=== PATIENT | female | born 1930 | race Caucasian/White ===

== ENCOUNTER 2017-03-14 15:10 | Observation (INO) ==
[2017-03-14] MEDS ORDERED: Aspirin 325 MG TABLET PO ONE (15:30)
--- NOTE | 2017-03-14 15:34 | Emergency Department Note ---
Disposition Clinical Impression: Atrial fibrillation with RVR Disposition: Admitted As Inpatient Condition: Good Time of Disposition: 17:26 Arrhythmia/Palpitations HPI - General Chief Complaint: ED Arrhythmia/Palpitations Stated Complaint: Tachy Time Seen by Provider: 03/14/17 15:32 Source: patient Mode of arrival: ambulatory Limitations: no limitations Nursing Notes Reviewed: Yes Vital Signs Reviewed: Yes - History of Present Illness HPI Narrative: This is an 86-year-old female who came in after being seen at her family doctor and told her heart rate was high. Patient is completely asymptomatic she denies any pain complaints. Patient thinks she might of had a history of an abnormal heart rhythm in the past but she is not sure. Patient denies any chest pain, shortness of breath, lightheadedness, or other symptoms. Pt Subjective Complaint: rapid heart beat - Related Data Home Medications Medication Instructions Recorded Confirmed Amlodipine Besylate 10 mg PO DAILY 03/14/17 03/14/17 Aspirin Enteric Coated [Aspirin EC] 81 mg PO DAILY 03/14/17 03/14/17 Calcium Carbonate [Calcium] 600 mg PO BID 03/14/17 03/14/17 Cholecalciferol (D-3) [Vitamin D] 1,000 unit PO DAILY 03/14/17 03/14/17 Docusate [Colace] 100 mg PO BID PRN 03/14/17 03/14/17 LORazepam [Ativan] 1 mg PO BID 03/14/17 03/14/17 Losartan/Hydrochlorothiazide 1 each PO DAILY 03/14/17 03/14/17 [Hyzaar 100-25 Tablet] Lovastatin 40 mg PO HS 03/14/17 03/14/17 Multivitamin [One Daily Essential] 1 each PO DAILY 03/14/17 03/14/17 [place]-3/Dha/Epa/Fish Oil [Fish Oil 1 each PO BID 03/14/17 03/14/17 500 mg Softgel] Polyethylene Glycol 3350 [MiraLAX] 17 gm PO DAILY 03/14/17 03/14/17 Potassium Chloride [Klor-Con 10] 10 meq PO DAILY 03/14/17 03/14/17 Sertraline [Zoloft] 50 mg PO DAILY 03/14/17 03/14/17 Previous Rx's Medication Instructions Recorded traMADol [Ultram] 50 mg PO Q6HR PRN #20 tablet 02/17/16 Allergies Allergy/AdvReac Type Severity Reaction Status Date / Time Penicillins Allergy Anaphylaxis Verified 02/17/16 09:31 All systems ED: reviewed and negative except as stated. Constitutional: Denies: fever, chills, weakness, weight change Eyes: Denies: eye pain, eye discharge, vision change ENT ED: Denies: ear pain, throat pain, dental pain, hearing loss, epistaxis, congestion, dysphagia Cardiovascular: Denies: chest pain, palpitations, dyspnea on exertion, edema, syncope Respiratory: Denies: cough, dyspnea, wheezes, hemoptysis, stridor Gastrointestinal: Denies: abdominal pain, nausea, vomiting, diarrhea, constipation, hematemesis, melena, hematochezia Genitourinary: Denies: dysuria, frequency, hematuria, discharge Musculoskeletal: Denies: back pain, neck pain, arthralgia, myalgia Integumentary: Denies: rash, abrasion, lesions Neurological: Denies: headache, weakness, numbness, paresthesias, confusion, abnormal gait, vertigo Psychiatric: Denies: anxiety, depression, suicidal thoughts, homicidal thoughts , auditory hallucinations, visual hallucinations Endocrine: Denies: fatigue Hematological/Lymphatic: Denies: easy bleeding, easy bruising Allergic/Immunologic: Denies: facial swelling, urticaria Past Medical History - Past Medical History Attestation: Yes The following information was validated with the patient. Source: patient Medical history: Reports: atrial fibrillation, hyperlipidemia, hypertension, other Psychiatric history: Reports: no psych history - Social History Smoking Status: Never smoker Smokeless Tobacco Status: No Alcohol use: Reports: none Drug use: Reports: none Physical Exam - General Limitations: no limitations General appearance: alert, in no apparent distress - Head Head exam: atraumatic, normocephalic, normal inspection - Eye Eye exam: Present: normal appearance, PERRL, EOMI - ENT ENT exam: normal exam, normal oropharynx, mucous membranes moist - Expanded ENT Exam External ear exam: Present: normal external inspection Mouth exam: Present: normal external inspection Teeth exam: Present: normal inspection Throat exam: Present: normal inspection - Neck Neck exam: Present: normal inspection, full ROM, trachea midline - Chest Chest inspection: Present: normal inspection, symmetric chest wall rise - Respiratory Respiratory exam: Present: normal lung sounds bilaterally - Cardiovascular Cardiovascular exam: Present: tachycardia, irregular rhythm, normal heart sounds - Abdominal Exam Abdominal exam: Present: soft, Non-Tender. Absent: tenderness, distention, guarding, rebound, rigidity - Extremities Exam Extremities exam: Present: normal inspection, full ROM, pedal edema. Absent: tenderness - Expanded Upper Extremity Exam Shoulder exam: Present: normal inspection, full ROM Arm exam: Present: normal inspection, full ROM Elbow exam: Present: normal inspection, full ROM Forearm/Wrist exam: Present: normal inspection, full ROM Hand exam: Present: normal inspection, full ROM Vascular exam: Normal: capillary refill, radial pulse - Expanded Lower Extremity Exam Hip/Pelvis exam: Present: normal inspection, full ROM Upper leg exam: Present: normal inspection, full ROM Knee exam: Present: normal inspection, full ROM Lower leg exam: Present: full ROM, swelling Ankle exam: Present: full ROM, swelling Foot/toe exam: Present: normal inspection, full ROM Neurovascular/Tendon exam: Absent: motor deficit, sensory deficit, tendon deficit - Back Exam Back exam: Present: normal inspection, full ROM. Absent: tenderness - Neurological Exam Neurological exam: Present: alert, oriented X3 - Expanded Neurological Exam Patient oriented to: Present: person, place, time Coma Scale Eye Opening: Spontaneous Coma Scale Motor Response: Obeys Commands Coma Scale Verbal Response: Oriented Coma Scale Total: 15 - Psychiatric Psychiatric exam: Present: normal affect, normal mood - Skin Skin exam: Present: warm, dry, intact, normal color Course - Consultations Consultation #1: I spoke with Dr. Sean clemente to admit. 17:15. Consultation #2: I spoke with Dr. Adi clemente to consult. 18:03 Vital Signs Temperature 98.1 F 03/14/17 15:13 Pulse Rate 152 03/14/17 15:13 Respiratory Rate 18 03/14/17 15:13 Blood Pressure 115/88 03/14/17 15:13 O2 Sat by Pulse Oximetry 95 03/14/17 15:13 Temperature 98.1 F 03/14/17 15:13 Pulse Rate 98 03/14/17 17:06 Respiratory Rate 16 03/14/17 17:55 Blood Pressure 117/73 03/14/17 17:55 O2 Sat by Pulse Oximetry 92 03/14/17 17:06 Oxygen Delivery Oxygen Delivery Room Air Arrhythmia/Palpitations - Medical Records Medical records reviewed: Yes I reviewed the patient's medical records. - Lab Data Lab results reviewed: Yes I reviewed the patient's lab results. Result diagrams: 03/14/17 15:51 03/14/17 15:51 Lab Results 03/14/17 03/14/17 03/14/17 Range/Units 15:51 15:51 15:51 WBC 6.2 (4.3-11.1) K/mcL RBC 4.63 (3.82-4.97) M/mcL Hgb 14.4 (11.5-15.4) g/dL Hct 44.3 (35.3-44.9) % MCV 95.7 (83.0-100.0) fL MCH 31.1 (28.0-33.3) pg MCHC 32.5 (31.6-35.5) g/dL RDW 14.3 (11.5-14.5) % Plt Count 249 (140-400) K/mcL MPV 11.1 (9.4-12.4) fL Immature Gran % 0.5 (0-4) % Seg Neutrophils % 67.5 % Lymphocytes % 14.8 % Monocytes % 12.0 % Eosinophils % 4.2 % Basophils % 1.0 % Neutrophils # 4.2 (1.6-8.9) K/mcL Lymphocytes # 0.9 (0.6-4.6) K/mcL Monocytes # 0.7 (0.0-1.3) K/mcL Eosinophils # 0.3 (0.0-0.6) K/mcL Basophils # 0.1 (0.0-0.2) K/mcL PT 12.2 H (9.4-12.1) Seconds INR 1.1 APTT 27.9 (26.0-36.0) Seconds Sodium (136-145) mEq/L Potassium (3.5-4.5) mEq/L Chloride (98-109) mEq/L Carbon Dioxide (19-29) mEq/L BUN (7-20) mg/dL Creatinine (0.57-1.11) mg/dL Est GFR ( Amer) (> 60) Est GFR (Non-Af Amer) (> 60) BUN/Creatinine Ratio (6-26) Glucose (70-99) mg/dL Calculated Osmolality (280-300) Calcium (8.6-10.8) mg/dL Total Bilirubin (0.2-1.2) mg/dL AST (5-34) Units/L ALT (0-55) Units/L Alkaline Phosphatase (38-126) Units/L Troponin I 0.04 H* (0-0.03) ng/mL Serum Total Protein (6.0-8.3) g/dL Albumin (3.5-5.0) g/dL Globulin (2.4-3.5) g/dL Albumin/Globulin Ratio (1.1-2.2) TSH (0.350-4.840) mcIU/mL Urine Color (Yellow) Urine Clarity (Clear) Urine pH (5.0-8.0) pH Units Ur Specific [place] (1.010-1.025) Urine Protein (Neg-Trace) mg/dL Urine Glucose (UA) (Normal) mg/dL Urine Ketones (Negative) mg/dL Urine Blood (Negative) Urine Nitrite (Negative) Urine Bilirubin (Negative) Urine Urobilinogen (Normal) mg/dL Ur Leukocyte Esterase (Negative) 03/14/17 03/14/17 Range/Units 15:51 17:00 WBC (4.3-11.1) K/mcL RBC (3.82-4.97) M/mcL Hgb (11.5-15.4) g/dL Hct (35.3-44.9) % MCV (83.0-100.0) fL MCH (28.0-33.3) pg MCHC (31.6-35.5) g/dL RDW (11.5-14.5) % Plt Count (140-400) K/mcL MPV (9.4-12.4) fL Immature Gran % (0-4) % Seg Neutrophils % % Lymphocytes % % Monocytes % % Eosinophils % % Basophils % % Neutrophils # (1.6-8.9) K/mcL Lymphocytes # (0.6-4.6) K/mcL Monocytes # (0.0-1.3) K/mcL Eosinophils # (0.0-0.6) K/mcL Basophils # (0.0-0.2) K/mcL PT (9.4-12.1) Seconds INR APTT (26.0-36.0) Seconds Sodium 140 (136-145) mEq/L Potassium 3.6 (3.5-4.5) mEq/L Chloride 103 (98-109) mEq/L Carbon Dioxide 26 (19-29) mEq/L BUN 21 H (7-20) mg/dL Creatinine 1.04 (0.57-1.11) mg/dL Est GFR ( Amer) > 60 (> 60) Est GFR (Non-Af Amer) 50 L (> 60) BUN/Creatinine Ratio 20 (6-26) Glucose 86 (70-99) mg/dL Calculated Osmolality 292 (280-300) Calcium 10.2 (8.6-10.8) mg/dL Total Bilirubin 0.8 (0.2-1.2) mg/dL AST 34 (5-34) Units/L ALT 20 (0-55) Units/L Alkaline Phosphatase 87 (38-126) Units/L Troponin I (0-0.03) ng/mL Serum Total Protein 7.1 (6.0-8.3) g/dL Albumin 3.4 L (3.5-5.0) g/dL Globulin 3.7 H (2.4-3.5) g/dL Albumin/Globulin Ratio 0.9 L (1.1-2.2) TSH 1.138 (0.350-4.840) mcIU/mL Urine Color Yellow (Yellow) Urine Clarity Clear (Clear) Urine pH 7.5 (5.0-8.0) pH Units Ur Specific [place] 1.016 (1.010-1.025) Urine Protein 30 H (Neg-Trace) mg/dL Urine Glucose (UA) Normal (Normal) mg/dL Urine Ketones Negative (Negative) mg/dL Urine Blood Negative (Negative) Urine Nitrite Negative (Negative) Urine Bilirubin Negative (Negative) Urine Urobilinogen Normal (Normal) mg/dL Ur Leukocyte Esterase Negative (Negative) - Radiology Data Radiology results reviewed: Yes I reviewed the patient's radiology results. - EKG Data EKG attestation: Yes I reviewed and interpreted this EKG. Rate: tachycardia Rhythm: A.Fib, PVC's [place]/QRS: normal
[2017-03-14 16:07] LABS: Basophils # 0.1 K/mcL (0.0-0.2); Eosinophils # 0.3 K/mcL (0.0-0.6); Eosinophils % 4.2 %; Hematocrit 44.3 % (35.3-44.9); Hemoglobin 14.4 g/dL (11.5-15.4); Immature Granulocytes % 0.5 % (0-4); Lymphocytes # 0.9 K/mcL (0.6-4.6); Lymphocytes % 14.8 %; Mean Corpuscular HGB Conc 32.5 g/dL (31.6-35.5); Mean Corpuscular Hemoglobin 31.1 pg (28.0-33.3); Mean Corpuscular Volume 95.7 fL (83.0-100.0); Mean Platelet Volume 11.1 fL (9.4-12.4); Monocytes # 0.7 K/mcL (0.0-1.3); Neutrophils # 4.2 K/mcL (1.6-8.9); Platelet Count 249 K/mcL (140-400); Red Blood Count 4.63 M/mcL (3.82-4.97); Red Cell Distribution Width 14.3 % (11.5-14.5); Segmented Neutrophils % 67.5 %
[2017-03-14] MEDS ORDERED: *HR* Metoprolol 5 MG/5 ML VIAL IVP ONE ×2 (16:13→17:27)
[2017-03-14 16:15] LABS: INR 1.1; Prothrombin Time 12.2 Seconds (9.4-12.1)
[2017-03-14 16:17] LABS: Activated Partial Thrombo Time 27.9 Seconds (26.0-36.0)
[2017-03-14 16:19] LABS: Alanine Aminotransferase 20 Units/L (0-55); Albumin 3.4 g/dL (3.5-5.0); Albumin/Globulin Ratio 0.9 (1.1-2.2); Alkaline Phosphatase 87 Units/L (38-126); Aspartate Amino Transferase 34 Units/L (5-34); BUN/Creatinine Ratio 20 (6-26); Bilirubin,Total 0.8 mg/dL (0.2-1.2); Blood Urea Nitrogen 21 mg/dL (7-20); Calcium 10.2 mg/dL (8.6-10.8); Carbon Dioxide 26 mEq/L (19-29); Chloride 103 mEq/L (98-109); Globulin 3.7 g/dL (2.4-3.5); Glucose 86 mg/dL (70-99); Osmolality,Calculated 292 (280-300); Potassium 3.6 mEq/L (3.5-4.5); Sodium 140 mEq/L (136-145); Total Protein 7.1 g/dL (6.0-8.3); eGFR For African Americans > 60 (> 60); eGFR For Non-African Americans 50 (> 60)
[2017-03-14 16:41] LABS: Thyroid Stimulating Hormone 1.138 mcIU/mL (0.350-4.840)
[2017-03-14 17:14] LABS: Bilirubin,Urine Negative (Negative); Blood,Urine Negative (Negative); Clarity,Urine Clear (Clear); Color,Urine Yellow (Yellow); Glucose,Urine (UA) Normal (Normal); Ketones,Urine Negative (Negative); Leukocyte Esterase,Urine Negative (Negative); Nitrite,Urine Negative (Negative); PH,Urine 7.5 pH Units (5.0-8.0); Protein,Urine 30 mg/dL (Neg-Trace); Specific Gravity,Urine 1.016 (1.010-1.025); Urobilinogen,Urine Normal (Normal)
[2017-03-14 17:16] LABS: Bacteria,Urine None Seen per hpf (None-Few); Hyaline Casts,Urine None Seen per lpf (None-Few); RBC,Urine 0-3 per hpf (0-3); Squamous Epithelial Cell,Urine Moderate per lpf (None-Few)
[2017-03-14] MEDS ORDERED: *HR* Heparin 5,000 UNIT/ML VIAL IVP PRN ×2 (20:43)
[2017-03-14] MEDS ORDERED: *HR* Morphine 2 MG/ML SYRINGE IVP PRN (20:43)
[2017-03-14] MEDS ORDERED: Acetaminophen 325 MG TABLET PO PRN (20:43)
[2017-03-14] MEDS ORDERED: Naloxone 0.4 MG/ML INJ IVP PRN (20:43)
[2017-03-14] MEDS ORDERED: *HR* Heparin 5,000 UNIT/ML VIAL IVP ONE (20:43)
[2017-03-14] MEDS ORDERED: Heparin 25,000 UNIT/500 ML D5W 25,000 UNIT/500 ML MLS IVC SCH (20:45)
[2017-03-14] MEDS ORDERED: traMADol 50 MG TABLET PO PRN (20:49)
--- NOTE | 2017-03-14 21:03 | Internal Med History&Physical ---
Date of Encounter: 03/14/17 Time of Encounter: 20:00 Assessment and Plan (1) Atrial fibrillation with RVR Current visit: Yes Status: Acute 1. Will place on oral Lopressor and monitor. 2. Will place on Heparin gtt per ACS protocol. 3. If rate uncontrolled, will start Cardizem drip if necessary. 4. Consult cardiology for new onset atrial fibrillation. 5. Cycle troponins, EKG's, and order ECHO. 6. Check TSH. (2) Multiple falls Current visit: Yes Status: Acute 1. Before considering intermediate card tender anti-coagulation, she needs PT/OT evaluation and guidance from cardiology. 2. Risk of chronic anti-coagulation may outweigh the benefits. (3) Hypertension Current visit: Yes Status: Acute 1. Continue home meds as appropriate. 2. Monitor BP and adjust meds as necessary. Qualifiers: Hypertension type: essential hypertension Qualified Code(s): I10 - Essential (primary) hypertension (4) DVT prophylaxis Current visit: Yes Status: Acute 1. Heparin gtt per ACS protocol as above. Internal Medicine - H&P: HPI Chief complaint: fast heart rate Admitted From: Emergency Dept Plans for Post Hospital Care: Home History of present illness: Ms. Spann is a 86 year old female who was sent to the ER by her PCP after noting a fast and abnormal heart rate on exam today. She was seen in the ER and found to have atrial fibrillation with rapid ventricular response. She was given 2 doses of IV Lopressor with improvement in her heart rhythm and admitted to the hospitalist service. Upon my assessment of the patient, patient feels well and has no complaints. She denies any chest pain, shortness of breath, palpitations, or fast heartbeat. She did not have any complaints or notice any symptoms until her PCP noticed them on exam. She denies any history of atrial fibrillation. She states she has been falling frequently over the last several months. She denies any syncope, lightheadedness, or dizziness. She lives alone but she lives near her son. She cares for herself at home and ambulates without difficulty, but she has been falling as noted above. Past Med Surg Social Fam HX - Past Medical History Attestation: Yes The following information was validated with the patient. Source: patient, old records reviewed Medical history: arthritis, atrial fibrillation, hyperlipidemia, hypertension, other Psychiatric history: no psych history - Past Surgical History Surgical History: other - Social History Smoking Status: Never smoker Smokeless Tobacco Status: No Alcohol use: none Drug use: none - Family History Father History Unknown: Yes Cause of : lung cancer Mother Cause of : cervical Internal Medicine - H&P: Meds traMADol [Ultram] 50 mg PO Q6HR PRN #20 tablet 02/17/16 [Rx] Amlodipine Besylate 10 mg PO DAILY 03/14/17 [History] Aspirin Enteric Coated [Aspirin EC] 81 mg PO DAILY 03/14/17 [History] Calcium Carbonate [Calcium] 600 mg PO BID 03/14/17 [History] Cholecalciferol (D-3) [Vitamin D] 1,000 unit PO DAILY 03/14/17 [History] Docusate [Colace] 100 mg PO BID PRN 03/14/17 [History] LORazepam [Ativan] 1 mg PO BID 03/14/17 [History] Losartan/Hydrochlorothiazide [Hyzaar 100-25 Tablet] 1 each PO DAILY 03/14/17 [ History] Lovastatin 40 mg PO HS 03/14/17 [History] Multivitamin [One Daily Essential] 1 each PO DAILY 03/14/17 [History] [place]-3/Dha/Epa/Fish Oil [Fish Oil 500 mg Softgel] 1 each PO BID 03/14/17 [ History] Polyethylene Glycol 3350 [MiraLAX] 17 gm PO DAILY 03/14/17 [History] Potassium Chloride [Klor-Con 10] 10 meq PO DAILY 03/14/17 [History] Sertraline [Zoloft] 50 mg PO DAILY 03/14/17 [History] 3 Allergy/AdvReac Type Severity Reaction Status Date / Time Penicillins Allergy Anaphylaxis Verified 02/17/16 09:31 - Constitutional Constitutional: no chills, no fever(s) - EENT Eyes: no blurry vision, no change in vision Ears: no ear pain, no tinnitus Nose, mouth and throat: no nasal congestion, no sore throat, no throat swelling - Cardiovascular Cardiovascular ROS IM: no chest pain, no diaphoresis, no dyspnea, no dyspnea on exertion, no edema, no lightheadedness, no palpitations, no syncope - Respiratory Respiratory: no dyspnea, no hemoptysis, no dyspnea on exertion - Gastrointestinal Gastrointestinal: no abdominal pain, no diarrhea, no hematemesis, no hematochezia, no melena, no vomiting - Genitourinary Genitourinary: no dysuria, no flank pain, no hematuria - Musculoskeletal Musculoskeletal ROS IM: no arthralgias, no back pain - Integumentary Integumentary IM: no rash, no jaundice - Neurological Neurological ROS: frequent falls, no dizziness, no focal weakness, no headache(s ), no weakness - Psychiatric Psychiatric: no anxiety, no depression - Endocrine Endocrine IM: no polydipsia, no polyuria - Allergic/Immunologic Allergic/Immunologic: no GI upset with certain foods - Constitutional Vitals: Temp Pulse Resp BP Pulse Ox 98.1 F 96 17 110/74 92 03/14/17 19:54 03/14/17 19:54 03/14/17 19:54 03/14/17 19:54 03/14/17 19:54 General appearance: Present: cooperative, A&O X 3, pleasant, no acute distress - Head Head exam: Present: atraumatic, normal inspection - Expanded Head Exam Head exam expanded: Absent: abrasion, contusion, general tenderness - Eye Eye exam: Present: EOMI, PERRL. Absent: scleral icterus Pupils: Present: normal accommodation - ENT ENT exam: Present: mucous membranes moist, normal exam - Neck Neck exam general surgery: Present: full ROM, supple. Absent: tenderness, thyromegaly - Expanded Neck Exam Neck exam: Absent: carotid bruit - Respiratory Respiratory exam: Present: CTAB. Absent: chest wall tenderness, rales, rhonchi , wheezes - Cardiovascular Cardiovascular exam: Present: irregular rhythm, +S1, +S2. Absent: diastolic murmur, JVD, systolic murmur - GI/Abdominal GI/Abdominal exam: Present: normal bowel sounds, soft. Absent: hepatomegaly, rebound, splenomegaly, tenderness - Extremities Exam Extremities exam: Present: normal capillary refill, warm, radial pulses palpable and symmetrical. Absent: calf tenderness, joint swelling, pedal edema - Back Exam Back exam: Absent: CVA tenderness (L), CVA tenderness (R) - Neurological Exam Neurological exam: Present: alert, CN II-XII intact, oriented X3, no focal deficits, strengths equal and symetr throughout - Psychiatric Psychiatric exam: Present: normal affect, normal mood - Skin Skin exam: Present: dry, warm. Absent: rash Internal Med - H&P Results - Labs CBC & Chem 7: 03/14/17 15:51 03/14/17 15:51 - EKG Data -: EKG Interpreted by Myself - EKG Data Prior EKG available for review: no EKG comments: 03/15/17 00:55 atrial fibrillation w RVR - Diagnostic Studies Chest x-ray Status: image reviewed by me (cardiomegaly; no failure) - VTE Reasons for not Prescribing Prophylaxis: Not indicated-Anticoagulated or INR therapeutic
[2017-03-15] MEDS ORDERED: 0.9 % Sodium Chloride 500 ML ONE (02:43)
[2017-03-15] MEDS: *HR* LORazepam 1 MG TABLET PO PRN ×2 (02:52→23:13)
[2017-03-15 06:55] LABS: Basophils # 0.1 K/mcL (0.0-0.2); Basophils % 1.1 %; Eosinophils # 0.3 K/mcL (0.0-0.6); Eosinophils % 4.4 %; Hematocrit 40.5 % (35.3-44.9); Hemoglobin 13.3 g/dL (11.5-15.4); Immature Granulocytes % 0.6 % (0-4); Lymphocytes # 0.9 K/mcL (0.6-4.6); Lymphocytes % 12.9 %; Mean Corpuscular HGB Conc 32.8 g/dL (31.6-35.5); Mean Corpuscular Hemoglobin 31.2 pg (28.0-33.3); Mean Corpuscular Volume 95.1 fL (83.0-100.0); Mean Platelet Volume 11.2 fL (9.4-12.4); Monocytes # 0.6 K/mcL (0.0-1.3); Monocytes % 9.1 %; Neutrophils # 5.1 K/mcL (1.6-8.9); Platelet Count 245 K/mcL (140-400); Red Blood Count 4.26 M/mcL (3.82-4.97); Red Cell Distribution Width 14.5 % (11.5-14.5); Segmented Neutrophils % 71.9 %
[2017-03-15 07:06] LABS: Albumin 3.2 g/dL (3.5-5.0); Albumin/Globulin Ratio 0.9 (1.1-2.2); Bilirubin,Total 0.7 mg/dL (0.2-1.2); Calcium 9.4 mg/dL (8.6-10.8); Chol/HDL Ratio 2.8 (0-4.9); Globulin 3.5 g/dL (2.4-3.5); Potassium 3.6 mEq/L (3.5-4.5); Total Protein 6.7 g/dL (6.0-8.3)
[2017-03-15] MEDS ORDERED: Aspirin Enteric Coated 81 MG Tablet PO SCH (09:00)
[2017-03-15 09:23] LABS: Activated Partial Thrombo Time 147.4 Seconds (26.0-36.0)
[2017-03-15 09:32] LABS: Heparin anti-factor XA UFH 0.66 IU/mL (0.30-0.70)
[2017-03-15] MEDS: Cholecalciferol (D-3) 1,000 UNIT TABLET PO SCH (09:40)
[2017-03-15] MEDS: Multivit/Ca/Min/Fe/FA 1 TAB TABLET PO SCH (09:41)
[2017-03-15] MEDS: Losartan/HCTZ 50-12.5 TABLET PO SCH (09:41)
--- NOTE | 2017-03-15 10:06 | Cardiology Consult Note ---
Date of Encounter: 03/15/17 Time of Encounter: 09:30 Assessment and Plan (1) Atrial fibrillation with RVR Current Visit: Yes Status: Acute Per cardiology: -Admitted with atrial fibrillation with RVR. -Asymptomatic. -Report may have a history of this, however she is unsure. -Denies previous cardiac work up. -ECG with atrial fibrillation with RVR, HR 142. -Telemetry reviewed with average HR previous 12 hours noted to be 101, atrial fibrillation. -On lopressor 25mg BID. -[id number] score 4 (age, gender, HTN). Currently on heparin drip. 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 Patient states she has fallen 2-3 times in the past 2 weeks. -TTE pending. -Will increase lopressor to 50mg BID. Will give one time dose of 25mg now to total 50mg this am. -Suspect patient not a good candidate for detention anticogulation due to frequent falls. -Further recommendations pending TTE. (2) Multiple falls Current Visit: Yes Status: Chronic Per cardiology: -Reports has fallen multiple times in the past 2 weeks. -Denies dizziness, lightheadedness, near syncope, or syncope. -Management per primary service. (3) Elevated troponin Current Visit: Yes Status: Acute Per cardiology: -Troponin 0.04, 0.05, 0.04. -Troponins flat and adynamic in the setting of atrial fibrillation with RVR. -Denies chest pain, shortness of breath, or increased fatigue. -ECG with atrial fibrillation with RVR. NO previous ECG to review. -TTE pending. -Currently on asa, statin, beta uriel, and heparin drip. -DO not suspect NSTEMI, suspect demand ischemia related to atrial fibrillation with RVR. No cardiac rehab warranted at this time. -Further recommendations pending TTE. Discussion w patient/family: The assessment and plan as outlined above was discussed with the patient who expressed understanding and agreement. All questions were answered. Thank you for involving us in the care of your patient. Please call with any questions. Discussed and reviewed with . History of Present Illness Consult date: 03/14/17 Requesting physician: Casandra Roberts Consult reason: atrial fibrillation with RVR Chief complaint: high HR History of present illness: Ms. Spann is a 86 year old female with a relevant past medical history of HTN , hyperlipidemia, anxiety, depression. Patient states she was at her PCP yesterday when her PCP noticed her HR was high and ECG was done. Patient was noted to be in atrial fibrillation RVR and was sent to ER. Patient denies chest pain or shortness of breath. Patient denies increased fatigue. Patient denies palpitations or fluttering. Patient denies feeling heart racing. Past Med Surg Social Fam HX - Past Medical History Attestation: Yes The following information was validated with the patient. Source: patient, old records reviewed Medical history: arthritis, atrial fibrillation, hyperlipidemia, hypertension, other Psychiatric history: no psych history - Past Surgical History Surgical History: other - Social History Smoking Status: Never smoker Smokeless Tobacco Status: No Alcohol use: none Drug use: none - Family History Father History Unknown: Yes Cause of : lung cancer Mother Cause of : cervical Medications and Allergies traMADol [Ultram] 50 mg PO Q6HR PRN #20 tablet 02/17/16 [Rx] Amlodipine Besylate 10 mg PO DAILY 03/14/17 [History] Aspirin Enteric Coated [Aspirin EC] 81 mg PO DAILY 03/14/17 [History] Calcium Carbonate [Calcium] 600 mg PO BID 03/14/17 [History] Cholecalciferol (D-3) [Vitamin D] 1,000 unit PO DAILY 03/14/17 [History] Docusate [Colace] 100 mg PO BID PRN 03/14/17 [History] LORazepam [Ativan] 1 mg PO BID 03/14/17 [History] Losartan/Hydrochlorothiazide [Hyzaar 100-25 Tablet] 1 each PO DAILY 03/14/17 [ History] Lovastatin 40 mg PO HS 03/14/17 [History] Multivitamin [One Daily Essential] 1 each PO DAILY 03/14/17 [History] [place]-3/Dha/Epa/Fish Oil [Fish Oil 500 mg Softgel] 1 each PO BID 03/14/17 [ History] Polyethylene Glycol 3350 [MiraLAX] 17 gm PO DAILY 03/14/17 [History] Potassium Chloride [Klor-Con 10] 10 meq PO DAILY 03/14/17 [History] Sertraline [Zoloft] 50 mg PO DAILY 03/14/17 [History] 3 Allergy/AdvReac Type Severity Reaction Status Date / Time Penicillins Allergy Anaphylaxis Verified 02/17/16 09:31 All Systems Review: A 10-system review of systems was performed and is negative for pertinent findings except as documented above in the HPI. - Cardiovascular Cardiovascular: as per HPI, rapid heart rate Physical Examination Vital Signs, Last 4 Hours Temp Pulse Resp BP Pulse Ox 03/15/17 08:17 98.1 F 117 15 140/82 92 General: Conversant, No Apparent Distress HEENT: Atraumatic, Normocephaly, Mucus Membranes Moist Neck: No JVD, Normal carotid pulses Cardiac: Normal S1 and S2, No Murmur, Other (Irregularly irregular) Lungs: Normal Breath Sounds, No Wheeze, Rales, Rhonchi Neuro: Alert and responsive, No focal deficits noted Abdomen: Soft, Non-Tender Skin: No rashes noted on visualized skin Musculoskeletal: No Chest Wall Tenderness Extremities: No Clubbing, No Cyanosis, Normal Pulses, Other (Moderate bilateral pedal edema noted, non-pitting. ) Results 03/15/17 06:34 03/15/17 06:34 Lab Results Impressions Chest X-Ray 03/14/17 15:30 IMPRESSION: Cardiomegaly. No acute infiltrate or evidence of overt failure. D/ / Hi Hood MD / Hi Hood MD Interpreting Provider: Hi Hood MD Active Medications Acetaminophen (Tylenol) 650 mg PO Q6HR PRN PRN Reason: Mild Pain (1-3) Stop: 09/13/17 20:44 Aspirin (Aspirin Ec) 81 mg PO DAILY [facility] Stop: 09/14/17 09:01 Last Admin: 03/15/17 09:41 Dose: 81 mg Calcium Carbonate (Tums) 500 mg PO BID [facility] Stop: 09/13/17 21:01 Last Admin: 03/15/17 09:41 Dose: 500 mg Docusate Sodium (Colace) 100 mg PO BID PRN PRN Reason: Constipation Stop: 09/13/17 20:44 HCTZ/Losartan Potassium (Hyzaar 50/12.5) 2 each PO DAILY [facility] Stop: 09/14/17 09:01 Last Admin: 03/15/17 09:41 Dose: 2 each Heparin Sodium (Porcine) (Heparin) 3,300 unit 60 unit/kg (3300 unit) IVP Q6HR PRN PRN Reason: SEE COMMENTS Stop: 09/13/17 20:44 Heparin Sodium (Porcine) (Heparin) 1,600 unit 30 unit/kg (1600 unit) IVP Q6H PRN PRN Reason: SEE COMMENTS Stop: 09/13/17 20:44 Heparin Sodium/Dextrose (Heparin 25,000 Unit/500 Ml D5w) 25,000 unit in 500 mls @ 13.2 mls/hr IVC .Q24H [facility]; 12 UNIT/KG/HR PRN Reason: Protocol Stop: 09/13/17 20:46 Last Titration: 03/15/17 09:41 Dose: 0 unit/kg/hr, 0 mls/hr Lorazepam (Ativan) 1 mg PO BID PRN PRN Reason: Anxiety Stop: 09/13/17 20:50 Last Admin: 03/15/17 02:52 Dose: 1 mg Metoprolol Tartrate (Lopressor) 50 mg PO BID [facility] Stop: 09/14/17 21:01 Morphine Sulfate (Morphine Sulfate) 1 mg IVP Q3H PRN PRN Reason: Chest Pain Stop: 09/13/17 20:44 Multivitamins/Calcium (Thera M Plus) 1 tab PO DAILY [facility] Stop: 09/14/17 09:01 Last Admin: 03/15/17 09:41 Dose: 1 tab Naloxone HCl (Narcan) 0.4 mg IVP Q2MIN PRN PRN Reason: Opioid Reversal Stop: 09/13/17 20:44 Polyethylene Glycol (Miralax) 17 gm PO DAILY [facility] Stop: 09/14/17 09:01 Last Admin: 03/15/17 09:41 Dose: Not Given Potassium Chloride (Potassium Chloride) 10 meq PO DAILY [facility] Stop: 09/14/17 09:01 Last Admin: 03/15/17 09:41 Dose: 10 meq Simvastatin (Zocor) 20 mg PO HS [facility] Stop: 09/13/17 21:01 Last Admin: 03/14/17 22:27 Dose: 20 mg Tramadol HCl (Ultram) 50 mg PO Q6HR PRN PRN Reason: Moderate Pain Stop: 09/13/17 20:50 Vitamin D (Vitamin D) 1,000 unit PO DAILY [facility] Stop: 09/14/17 09:01 Last Admin: 03/15/17 09:40 Dose: 1,000 unit Laboratory Tests 03/14/17 03/14/17 03/14/17 15:51 15:51 21:41 Hgb Potassium Creatinine Magnesium Troponin I 0.04 H* 0.05 H* TSH 1.138 03/14/17 03/15/17 03/15/17 21:41 06:34 06:34 Hgb 13.3 Potassium 3.6 Creatinine 1.10 Magnesium 1.9 Troponin I TSH 03/15/17 06:34 Hgb Potassium Creatinine Magnesium Troponin I 0.04 H* TSH - Imaging and Cardiology Chest Xray: report reviewed Echo: pending - EKG Interpretation EKG results cardiology: personally reviewed (ECG with atrial fibrillation with RVR, HR 142.), other (Telemetry reviewed with average HR previous 12 hours noted to be 101, atrial fibrillation. Longest pause 1.4 seconds. PVCs noted.) Consult Discharge Plan - Plan Referrals: Thaddeus Mendoza DO [Primary Care Provider] -
--- NOTE | 2017-03-15 17:44 | Internal Med Progress Note ---
Date of Encounter: 03/15/17 Time of Encounter: 17:42 - Assessment and plan (1) Pneumonitis Current Visit: Yes Status: Acute (2) Atrial fibrillation with RVR Current Visit: Yes Status: Acute (3) Multiple falls Current Visit: Yes Status: Chronic (4) Hypertension Current Visit: Yes Status: Acute Qualifiers: Hypertension type: essential hypertension Qualified Code(s): I10 - Essential (primary) hypertension (5) Elevated troponin Current Visit: Yes Status: Acute - Subjective Interval history: Admitted for asymptomatic atrial flutter/fibrillation. Seen by cardiology during this admission. Heart rate tried to be controlled by metoprolol unsuccessfully. Digoxin added. Echocardiogram showed EF 70% mild aortic stenosis LV diastolic dysfunction. Anticoagulation will be limited to aspirin only due to multiple falls. Patient had multiple falls at home. 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 Echocardiogram noted above. Ultrasound carotid pending. Patient is on aspirin. Cholesterol profile will be checked. Complaining of cough. Chest examination showed right-sided rhonchi. X-rays negative however I tried to see the x-ray report and could not computer.In any case IV Rocephin is started. - Constitutional Vitals: Temp Pulse Resp BP Pulse Ox 97.8 F 100 20 128/77 96 03/15/17 15:20 03/15/17 15:20 03/15/17 15:20 03/15/17 15:20 03/15/17 15:20 General appearance: Present: cooperative, A&O X 3, pleasant, no acute distress - Head Head exam: Present: atraumatic, normocephalic - Eye Eye exam: Present: PERRL, conjuntiva pink, sclera anicteric Pupils: Present: PERRL - Neck Neck exam general surgery: Present: supple, trachea midline. Absent: lymphadenopathy - Respiratory Respiratory exam: Present: CTAB, rhonchi. Absent: accessory muscle use, rales, wheezes - Cardiovascular Cardiovascular exam: Present: RRR, +S1, +S2. Absent: diastolic murmur, gallop, rubs, systolic murmur - GI/Abdominal GI/Abdominal exam: Present: normal bowel sounds, soft, no peritoneal signs. Absent: distended, tenderness - Extremities Exam Extremities exam: Present: warm, radial pulses palpable and symmetrical. Absent : calf tenderness, cyanotic, pedal edema - Neurological Exam Neurological exam: Present: CN II-XII intact, oriented X3, no focal deficits. Absent: pronater drift, facial droop, speech deficit - Skin Skin exam: Present: dry, intact Internal Medicine: Result - Labs CBC & Chem 7: 03/15/17 06:34 03/15/17 06:34 Labs: Short CBC 03/15/17 Range/Units 06:34 WBC 7.0 (4.3-11.1) K/mcL Hgb 13.3 (11.5-15.4) g/dL Hct 40.5 (35.3-44.9) % Plt Count 245 (140-400) K/mcL Neutrophils # 5.1 (1.6-8.9) K/mcL BMP 03/15/17 06:34 Sodium 140 Potassium 3.6 Chloride 104 Carbon Dioxide 23 BUN 21 H Creatinine 1.10 Glucose 182 H Calcium 9.4 Cardiac Enzymes 03/14/17 03/15/17 Range/Units 21:41 06:34 Troponin I 0.05 H* 0.04 H* (0-0.03) ng/mL Liver Function 03/15/17 Range/Units 06:34 Total Bilirubin 0.7 (0.2-1.2) mg/dL AST 105 H (5-34) Units/L ALT 87 H (0-55) Units/L Alkaline Phosphatase 87 (38-126) Units/L Albumin 3.2 L (3.5-5.0) g/dL - ABG Interpretation ABG results: PT/INR, D-dimer PT 12.2 Seconds (9.4-12.1) H 03/14/17 15:51 - Impressions Impressions Brain MRI 03/15/17 11:30 IMPRESSION: 1. No acute intracranial process identified. 2. Remote lacunar infarct within the right basal ganglia. 3. Diffuse cerebral volume loss and moderate chronic small vessel ischemic changes. D/ / Ketan Perez MD / Ketan Perez MD Interpreting Provider: Ketan Perez MD Chest X-Ray 03/15/17 11:32 IMPRESSION: 1. Stable mild to moderate enlargement of the cardiac silhouette. No superimposed acute pulmonary abnormality. D/ / Ean June MD / Ean June MD Interpreting Provider: Ean June MD Echocardiogram 03/15/17 20:43 Impressions: LVEF 55%. Normal LV chamber size, wall thickness and function. Indeterminate diastolic function. Normal right ventricular structure and function. Moderately dilated left atrium. Grossly, the aortic valve appears heavily calcified. The number of leaflets cannot be determined. Mild aortic stenosis suggested by Doppler. Mean gradient 12 mmHg. Visually, the severity of aortic stenosis appears worse. Mild aortic regurgitation. Mild-moderate mitral regurgitation. Moderate tricuspid regurgitation. Moderate pulmonary hypertension. Estimated RVSP is 47-52 mmHg, including an estimated right atrial pressure of 5-10 mmHg. Left Ventricular Wall Motion: Rest Echo Findings All wall segments showed normal motion. Findings: Study Quality * Technically adequate exam. ECG Findings * Atrial fibrillation. Left Ventricle * LVEF 55%. * Normal LV chamber size, wall thickness and function. * Indeterminate diastolic function. Right Ventricle * Normal right ventricular structure and function. Left Atrium * Moderately dilated left atrium. Right Atrium * Mildly dilated right atrium. Aortic Valve * Grossly, the aortic valve appears heavily calcified. The number of leaflets cannot be determined. * Mild aortic stenosis suggested by Doppler. Mean gradient 12 mmHg. Visually, the severity of aortic stenosis appears worse. * Mild aortic regurgitation. Mitral Valve * Moderate posterior mitral annular calcification. Thickened mitral valve leaflets. * Mild-moderate mitral regurgitation. * No mitral stenosis. Tricuspid Valve * Normal tricuspid valve structure. * Moderate tricuspid regurgitation. * Moderate pulmonary hypertension. * Estimated RVSP is 47-52 mmHg. * Estimated RA pressure is 5-10 mmHg. Pulmonic Valve * Pulmonic valve not well visualized. * No pulmonic regurgitation. Aorta * Normally sized aortic root. Pericardium * The pericardium appears normal. IVC * The IVC is not dilated. * < 50% respiratory change. Pulmonary Artery * Normal visualized portions of the main pulmonary artery. - VTE Reasons for not Prescribing Prophylaxis: Not indicated-Anticoagulated or INR therapeutic Consult Discharge Plan - Plan Referrals: Thaddeus Mendoza DO [Primary Care Provider] -
[2017-03-15] MEDS ORDERED: Doxycycline 100 MG in 0.9 % Sodium Chloride Mini Bag 100 ML IVPB SCH (18:00)
[2017-03-15] MEDS: *HR* Heparin 5,000 UNIT/ML VIAL SQ SCH (18:35)
[2017-03-15] MEDS: Doxycycline 100 MG in 0.9 % Sodium Chloride Mini Bag 100 ML IVPB SCH (18:38)
[2017-03-15] MEDS: *HR* Digoxin 0.5 MG/2 ML AMPUL IVP SCH ×2 (18:39→23:13)
[2017-03-16] MEDS: Doxycycline 100 MG in 0.9 % Sodium Chloride Mini Bag 100 ML IVPB SCH (05:19)
[2017-03-16] MEDS: *HR* Heparin 5,000 UNIT/ML VIAL SQ SCH ×2 (05:20→17:13)
--- NOTE | 2017-03-16 07:34 | Electrocardiograph Report ---
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
[2017-03-16] MEDS: Cholecalciferol (D-3) 1,000 UNIT TABLET PO SCH (08:45)
[2017-03-16] MEDS: Aspirin Enteric Coated 325 MG Tablet PO SCH (08:45)
[2017-03-16] MEDS: *HR* Digoxin 0.125 MG TABLET PO SCH (08:45)
[2017-03-16] MEDS: Multivit/Ca/Min/Fe/FA 1 TAB TABLET PO SCH (08:45)
[2017-03-16] MEDS: Losartan/HCTZ 50-12.5 TABLET PO SCH (08:45)
--- NOTE | 2017-03-16 15:13 | Internal Med Progress Note ---
Date of Encounter: 03/16/17 Time of Encounter: 15:10 - Assessment and plan (1) Pneumonitis Current Visit: Yes Status: Acute (2) Atrial fibrillation with RVR Current Visit: Yes Status: Acute (3) Multiple falls Current Visit: Yes Status: Chronic (4) Hypertension Current Visit: Yes Status: Acute Qualifiers: Hypertension type: essential hypertension Qualified Code(s): I10 - Essential (primary) hypertension (5) Elevated troponin Current Visit: Yes Status: Acute - Subjective Interval history: Admitted for asymptomatic atrial flutter/fibrillation. Seen by cardiology during this admission. Heart rate tried to be controlled by metoprolol unsuccessfully. Digoxin added. Echocardiogram showed EF 55 % mild aortic stenosis LV diastolic dysfunction. Enlarged LA and pulmonary hypertension. Anticoagulation will be limited to aspirin only due to recent multiple falls. Rate is not controlled therefore cardiology has increased her Toprol TO 75 twice a day when she is already on digoxin. Patient had multiple falls at home. MRI brain showed right basal ganglia lacunar CVA which is probably old. Echocardiogram noted above. Ultrasound carotid negative. Patient is on aspirin. Cholesterol profile within normal range. Complaining of cough. Chest examination showed right-sided rhonchi. X-rays negative however I tried to see the x-ray report and could not computer.In any case IV Rocephin is started. - Constitutional Vitals: Temp Pulse Resp BP Pulse Ox 97.6 F 91 20 136/72 95 03/16/17 11:33 03/16/17 11:33 03/16/17 11:33 03/16/17 11:33 03/16/17 11:33 General appearance: Present: cooperative, A&O X 3, pleasant, no acute distress - Head Head exam: Present: atraumatic, normocephalic - Eye Eye exam: Present: PERRL, conjuntiva pink, sclera anicteric Pupils: Present: PERRL - Neck Neck exam general surgery: Present: supple, trachea midline. Absent: lymphadenopathy - Respiratory Respiratory exam: Present: CTAB. Absent: accessory muscle use, rales, rhonchi, wheezes - Cardiovascular Cardiovascular exam: Present: RRR, +S1, +S2. Absent: diastolic murmur, gallop, rubs, systolic murmur - GI/Abdominal GI/Abdominal exam: Present: normal bowel sounds, soft, no peritoneal signs. Absent: distended, tenderness - Extremities Exam Extremities exam: Present: warm, radial pulses palpable and symmetrical. Absent : calf tenderness, cyanotic, pedal edema - Neurological Exam Neurological exam: Present: CN II-XII intact, oriented X3, no focal deficits. Absent: pronater drift, facial droop, speech deficit - Skin Skin exam: Present: dry, intact Internal Medicine: Result - Labs CBC & Chem 7: 03/15/17 06:34 03/15/17 06:34 - ABG Interpretation ABG results: PT/INR, D-dimer PT 12.2 Seconds (9.4-12.1) H 03/14/17 15:51 - Impressions Impressions Brain MRI 03/15/17 11:30 IMPRESSION: 1. No acute intracranial process identified. 2. Remote lacunar infarct within the right basal ganglia. 3. Diffuse cerebral volume loss and moderate chronic small vessel ischemic changes. D/ / Ketan Perez MD / Ketan Perez MD Interpreting Provider: Ketan Perez MD Chest X-Ray 03/15/17 11:32 IMPRESSION: 1. Stable mild to moderate enlargement of the cardiac silhouette. No superimposed acute pulmonary abnormality. D/ / Ean June MD / Ean June MD Interpreting Provider: Ean June MD - VTE Reasons for not Prescribing Prophylaxis: Not indicated-Anticoagulated or INR therapeutic Consult Discharge Plan - Plan Referrals: Thaddeus Mendoza DO [Primary Care Provider] -
[2017-03-16] MEDS: Doxycycline 100 MG CAPSULE PO SCH (17:13)
[2017-03-16] MEDS: *HR* LORazepam 1 MG TABLET PO PRN (20:02)
[2017-03-17] MEDS: *HR* Heparin 5,000 UNIT/ML VIAL SQ SCH (06:22)
[2017-03-17] MEDS: Doxycycline 100 MG CAPSULE PO SCH (06:22)
[2017-03-17] MEDS: *HR* Digoxin 0.125 MG TABLET PO SCH (08:43)
[2017-03-17] MEDS: Multivit/Ca/Min/Fe/FA 1 TAB TABLET PO SCH (08:43)
[2017-03-17] MEDS: Cholecalciferol (D-3) 1,000 UNIT TABLET PO SCH (08:43)
[2017-03-17] MEDS: Aspirin Enteric Coated 325 MG Tablet PO SCH (08:44)
[2017-03-17] MEDS: Losartan/HCTZ 50-12.5 TABLET PO SCH (08:44)
[2017-03-17 11:24] VITALS: BP 137/86
--- NOTE | 2017-03-17 14:27 | Discharge Summary ---
Date of Encounter: 03/17/17 Time of Encounter: 14:24 - Discharge Diagnosis (1) Pneumonitis Priority: Secondary Status: Acute (2) Atrial fibrillation with RVR Priority: Primary Status: Acute (3) Multiple falls Priority: Secondary Status: Chronic (4) Hypertension Priority: Secondary Status: Acute Qualifiers: Hypertension type: essential hypertension Qualified Code(s): I10 - Essential (primary) hypertension (5) Elevated troponin Priority: Secondary Status: Acute - Discharge Medications Prescriptions: Doxycycline 100 mg PO Q12HR #14 capsule Aspirin/Calcium Carbonate/Mag [Aspirin Buffered 325 mg Tab] 325 mg PO DAILY #30 tablet Digoxin [Lanoxin] 0.125 mg PO DAILY #30 tablet Metoprolol [Lopressor] 75 mg PO BID #60 tablet Home Medications: traMADol [Ultram] 50 mg PO Q6HR PRN #20 tablet 02/17/16 [Rx] Amlodipine Besylate 10 mg PO DAILY 03/14/17 [History] Calcium Carbonate [Calcium] 600 mg PO BID 03/14/17 [History] Cholecalciferol (D-3) [Vitamin D] 1,000 unit PO DAILY 03/14/17 [History] Docusate [Colace] 100 mg PO BID PRN 03/14/17 [History] LORazepam [Ativan] 1 mg PO BID 03/14/17 [History] Losartan/Hydrochlorothiazide [Hyzaar 100-25 Tablet] 1 each PO DAILY 03/14/17 [ History] Lovastatin 40 mg PO HS 03/14/17 [History] Multivitamin [One Daily Essential] 1 each PO DAILY 03/14/17 [History] [place]-3/Dha/Epa/Fish Oil [Fish Oil 500 mg Softgel] 1 each PO BID 03/14/17 [ History] Polyethylene Glycol 3350 [MiraLAX] 17 gm PO DAILY 03/14/17 [History] Potassium Chloride [Klor-Con 10] 10 meq PO DAILY 03/14/17 [History] Sertraline [Zoloft] 50 mg PO DAILY 03/14/17 [History] Aspirin/Calcium Carbonate/Mag [Aspirin Buffered 325 mg Tab] 325 mg PO DAILY #30 tablet 03/17/17 [Rx] Digoxin [Lanoxin] 0.125 mg PO DAILY #30 tablet 03/17/17 [Rx] Doxycycline 100 mg PO Q12HR #14 capsule 03/17/17 [Rx] Metoprolol [Lopressor] 75 mg PO BID #60 tablet 03/17/17 [Rx] Allergies/Adverse Reactions: 3 Allergy/AdvReac Type Severity Reaction Status Date / Time Penicillins Allergy Anaphylaxis Verified 02/17/16 09:31 Procedures/tests Complete & Pending: Procedures Performed prior 72 hours Category Date Time Status MR head/brain wo con [MR] Routine MRI 03/15/17 11:30 Completed EV carotid duplex imaging BI Routine Y 03/15/17 11:32 Completed EV echocardiogram Routine Y 03/15/17 20:43 Completed Date of admission: 03/14/17 17:43 Primary care physician: Thaddeus Mendoza, Consults: 03/14/17 20:48 Consult to Physician [CONS] Routine Consulting Provider: Prashant Cadena Reason for Consult: new atrial fib/RVR Call Completed: No 03/15/17 11:10 Consult to Occupational Therapy [CONS] Routine Comment: Evaluate, develop and implement POC Reason for Consult: eval for frequent falls Consult to Physical Therapy [CONS] Routine Comment: Evaluate, develop and implement POC Reason for Consult: eval for frequent falls Discharging clinician: Adrian Cabral Anticipated date of discharge: 03/17/17 - Patient Status Disposition: Home Health Service Condition: Good Overall status at discharge: patient is progressing back to baseline - Discharge Instructions Follow Up With: Thaddeus Mendoza DO [Primary Care Provider] - - Diet and Activity Activity: as per physical therapy Diet: advance to your usual diet, low fat, low cholesterol, low salt diet Hospital course: Ms. Sapnn is a 86 year old female Admitted for asymptomatic atrial flutter/ fibrillation. Seen by cardiology during this admission. Heart rate tried to be controlled by metoprolol unsuccessfully. Digoxin added. Echocardiogram showed EF 55 % mild aortic stenosis LV diastolic dysfunction. Enlarged LA and pulmonary hypertension. Anticoagulation will be limited to aspirin only due to recent multiple falls. Rate is not controlled therefore cardiology has increased her Toprol TO 75 twice a day while she is already on digoxin. Patient had multiple falls at home. MRI brain showed right basal ganglia lacunar CVA which is probably old. Echocardiogram noted above. Ultrasound carotid negative. Patient is on aspirin. Cholesterol profile within normal range. PT OT has seen the patient and recommended home care but no ECF. Family informed and patient will be discharged to home with home care. Complaining of cough. Chest examination showed right-sided rhonchi. X-rays negative for pneumonia. Doxycycline started. Cough is improved. - Time Spent with Patient Total time spent providing and/or coordinating discharge services: Greater than 30 minutes - Constitutional Vitals: Temp Pulse Resp BP Pulse Ox 97.7 F 83 17 137/86 94 03/17/17 11:23 03/17/17 11:23 03/17/17 11:23 03/17/17 11:23 03/17/17 11:27 General appearance: Present: cooperative, A&O X 3, pleasant, no acute distress - Head Head exam: Present: atraumatic, normocephalic - Eye Eye exam: Present: PERRL, conjuntiva pink, sclera anicteric Pupils: Present: PERRL - Neck Neck exam general surgery: Present: supple, trachea midline. Absent: lymphadenopathy - Respiratory Respiratory exam: Present: CTAB. Absent: accessory muscle use, rales, rhonchi, wheezes - Cardiovascular Cardiovascular exam: Present: irregular rhythm, +S1, +S2. Absent: diastolic murmur, gallop, rubs, systolic murmur - GI/Abdominal GI/Abdominal exam: Present: normal bowel sounds, soft, no peritoneal signs. Absent: distended, tenderness - Extremities Exam Extremities exam: Present: warm, radial pulses palpable and symmetrical. Absent : calf tenderness, cyanotic, pedal edema - Neurological Exam Neurological exam: Present: CN II-XII intact, oriented X3, no focal deficits. Absent: pronater drift, facial droop, speech deficit - Skin Skin exam: Present: dry, intact - VTE Reasons for not Prescribing Prophylaxis: Not indicated-Anticoagulated or INR therapeutic
== END 2017-03-17 16:15 | disposition home health service (06) ==
LOC: 2ANU 15:10 → EMEROO 15:10 → 2ANU 18:05
PROVIDERS: ADMIT Internal Medicine; ATTEND Internal Medicine